=== PATIENT | female | born 1955 | race Caucasian/White ===

== ENCOUNTER 2018-09-16 10:40 | Day surgery (SDC) | payer OTHER ==
--- NOTE | 2018-09-16 11:03 | PCM.PREANE ---
Preanesthetic Assessment - Procedure Proposed Procedure: ORIF Right distal radius - Anesthesia/Transfusion/Family Hx Anesthesia History: Prior Anesthesia Without Reaction (foot, hysterectomy, ovary , T+A, esophageal wrap,(Geovany FUNDOPLICATION) bunions. Claims some awareness during buion surgery (usually done under MAC)) Other Type of Anesthesia Reaction Comment: awareness duting bunion surgery, hx of post-op headaches Family History of Anesthesia Reaction: No Transfusion History: No Prior Transfusion(s) - Review of Systems General: No Symptoms (kidney stones, fibromyalgia) Pulmonary: No Symptoms Cardiovascular: No Symptoms Gastrointestinal: Other (GERD, mild to non existent since her "esophageal wrap"( Geovany Fundoplication)) Neurological: Headache (migraines and low back pain), Other (has "passing out spells" but none in 10 years. Says they are related with low blood sugars and "stress". I listened to heart and heard a possible very very faint aortic systolic emection murmur but no clicks or irregularities in the heart rhythm) Other: Reports: None - Physical Assessment NPO Status Date: 09/16/18 NPO Status Time: 00:00 Pulse: 77 O2 Sat by Pulse Oximetry: 99 Respiratory Rate: 18 Blood Pressure: 127/76 Temperature: 37.3 C Height: 1.63 m Weight: 58.967 kg ASA Class: 2 Mental Status: Alert & Oriented x3 Airway Class: Mallampati = 2 Dentition: Reports: Normal Dentition (UPPER RIGHT CAP) Thyro-Mental Finger Breadths: 2 Mouth Opening Finger Breadths: 3 ROM/Head Extension: Full Lungs: Clear to Auscultation, Normal Respiratory Effort Cardiovascular: Regular Rate, Regular Rhythm, No Murmurs (possibly very faint aortic SHIELA. No clicks. Never had cardiac workup.) - Allergies Allergies/Adverse Reactions: Allergies Allergy/AdvReac Type Severity Reaction Status Date / Time No Known Allergies Allergy Verified 09/15/18 16:04 - Blood Blood Available: No Product(s) Available: None - Acknowledgements Anesthesia Type Planned: General Anesthesia (GA with either LMA or ETT (minimal lGERD)) Pt an Appropriate Candidate for the Planned Anesthesia: Yes Alternatives and Risks of Anesthesia Discussed w Pt/Guardian: Yes Pt/Guardian Understands and Agrees with Anesthesia Plan: Yes PreAnesthesia Questionnaire HEENT History: Reports: None Cardiovascular History: Reports: None Respiratory History: Reports: None Gastrointestinal History: Reports: None Genitourinary History: Reports: None 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: Musculoskeletal History: Reports: Fracture, Fibromyalgia Other Musculoskeletal History: hx of fx bone in left hip and finger Neurological History: Reports: Migraines Psychiatric History: Reports: None Endocrine/Metabolic History: Reports: None Hematologic History: Reports: None Immunologic History: Reports: None Oncologic (Cancer) History: Reports: None Dermatologic History: Reports: None - Past Surgical History Head Surgeries/Procedures: Reports: None HEENT Surgical History: Reports: Tonsillectomy GI Surgical History: Reports: Other (See Below) Other GI Surgeries/Procedures: had an "esophageal wrap" Female Surgical History: Reports: Hysterectomy, Salpingo-Oophorectomy Musculoskeletal Surgical History: Reports: Other (See Below) Other Musculoskeletal Surgeries/Procedures:: hx of bilateral bunionectomies- screws removed - SUBSTANCE USE Smoking Status *Q: Never Smoker Recreational Drug Use History: No - HOME MEDS Home Medications: Home Meds SUMAtriptan 100 mg PO ASDIRECTED PRN 06/26/15 [History] Hydrocodone/Acetaminophen [Hydrocodon-Acetaminophen 5-325] 1 - 2 tab PO ASDIRECTED PRN 09/15/18 [History]
[2018-09-16] MEDS ORDERED: fentaNYL 100 MCG/2 ML SDV ONE ×3 (12:03→14:19)
[2018-09-16] MEDS ORDERED: Lactated Ringers 1,000 ML IV SCH (12:15)
[2018-09-16] MEDS ORDERED: Bupivacaine 0.5% 10 ML SDV ONE (12:33)
[2018-09-16] MEDS ORDERED: Midazolam 1 MG/ML 2 ML SDV ONE (13:09)
[2018-09-16] MEDS ORDERED: Propofol 200 MG/20 ML SDV ONE (13:13)
[2018-09-16] MEDS ORDERED: fentaNYL 100 MCG/2 ML SDV IVPUSH PRN (13:45)
[2018-09-16] MEDS ORDERED: Ketorolac 30 MG/ML SDV ONE (14:06)
[2018-09-16] MEDS ORDERED: Ondansetron 4 MG/2 ML SDV ONE (14:06)
--- NOTE | 2018-09-16 14:28 | PCM.OPNOTE ---
- General Post-Op/Procedure Note Date of Surgery/Procedure: 09/16/18 Operative Procedure(s): ORIF right distal radius fracture Post-Op Diagnosis: R distal radius fracture Anesthesia Technique: General LMA Primary Surgeon: Jovanna Ortiz Swage Tender: Mariaa Philip in mLs: 10 Condition: Good Free Text/Narrative:: tt=28 min #[id number]
--- NOTE | 2018-09-16 14:49 | PCM.POSTAN ---
POST ANESTHESIA ASSESSMENT - MENTAL STATUS Mental Status: Alert, Oriented - RESPIRATORY Respiratory Status: Respiratory Rate WNL, Airway Patent, O2 Saturation Stable - CARDIOVASCULAR CV Status: Pulse Rate WNL, Blood Pressure Stable - GASTROINTESTINAL GI Status: No Symptoms - POST OP HYDRATION Hydration Status: Adequate & Stable
[2018-09-16] MEDS ORDERED: Morphine 4 MG/ML Syringe ONE (15:22)
[2018-09-16] MEDS ORDERED: Acetaminophen/HYDROcodone 325-5 MG Tab ONE (15:24)
[2018-09-16 15:55] VITALS: BP 127/76
--- NOTE | 2018-09-16 15:55 | PCM48HPAN ---
Post Anesthesia Note - EVALUATION WITHIN 48HRS OF ANESTHETIC Vital Signs in Normal Range: Yes Patient Participated in Evaluation: Yes Respiratory Function Stable: Yes Airway Patent: Yes Cardiovascular Function Stable: Yes Hydration Status Stable: Yes Pain Control Satisfactory: Yes Nausea and Vomiting Control Satisfactory: Yes Mental Status Recovered: Yes Pulse Rate: 77 Resp Rate: 16 Temperature: 37.3 C Blood Pressure: 127/76 - COMMENTS/OBSERVATIONS Free Text/Narrative:: The patient appears comfortable and in no acute distress. Discharge home per criteria.
--- NOTE | 2018-09-16 16:42 | OR ---
SURGEON: Jovanna Ortiz MD DATE OF PROCEDURE: 09/16/2018 PREOPERATIVE DIAGNOSIS: Right distal radius fracture, extra-articular. POSTOPERATIVE DIAGNOSIS: Right distal radius fracture, extra-articular. PROCEDURE: Open reduction and internal fixation of right distal radius. RN TRANSPORT: BHAVESH Pedersen ANESTHESIA: General. ESTIMATED BLOOD LOSS: 10 mL. TOURNIQUET TIME: 28 minutes. COMPLICATIONS: None. DVT PROPHYLAXIS: PAS boots to bilateral lower extremities. IMPLANTS USED: Laura intermediate short plate with combination of 2.3 mm locking and 2.7 mm locking screws. BRIEF HISTORY: Addis is a 63-year-old female who sustained a work related incident. She sustained a fracture to her right wrist. She is left-hand dominant. Attempted closed reduction was performed in the clinic yesterday, this was unsuccessful. Due to her lack of response to conservative treatment, I did recommend surgical intervention. The risks and goals of the procedure were discussed with the patient and were documented preoperatively. She agreed to proceed. DESCRIPTION OF PROCEDURE: The patient was properly identified and brought to the operating room. She was transferred from the OR cart and placed on the operating table in supine position. General anesthesia was administered. After adequate anesthesia was obtained, a well-padded tourniquet was applied to the right upper extremity. The right upper extremity was then prepped in standard fashion using ChloraPrep solution. It was then sterilely draped. A time-out was performed to ensure correct site and procedure. Preoperative antibiotics were given. The surgical site had been marked preoperatively. An Esmarch was used to exsanguinate the right lower extremity and the tourniquet was inflated to 200 mmHg. An incision was made over the volar aspect of the wrist. This was centered over the FCR tendon. The subcutaneous tissues were incised. Electrocautery was used to maintain hemostasis. FCR tendon was identified. Its sheath was incised and it was brought in a radial manner. The floor of the tendon sheath was then incised. The FPL was identified and brought in an ulnar manner. The pronator quadratus was then exposed. An incision was made through the pronator quadratus using electrocautery along the radial aspect of the muscle. The muscle was quite small and thin. A periosteal elevator was then used to elevate the remaining muscle from the volar aspect of the radius. The fracture site was then identified. It was copiously irrigated with saline solution to remove the fracture hematoma. A [place] elevator was placed within the fracture and it was brought into a reduced position. I elected to proceed with the intermediate short plate. Its position was checked along the bone using the C-arm image intensifier. It was felt that there was adequate reduction. K-wires were placed for provisional fixation. A 2.3 mm locking screw was then placed into the oblong hole proximally. The position of the plate was again checked in the AP and lateral plane. A 2.3 mm locking screw was then placed in the distal hole. Prior to final tightening, the K-wires were removed and the proximal screw was loosened. The distal screw was then tightened, followed by tightening of the proximal screw. This helped to improve the dorsal tilt to a neutral position. Her bone was not of ideal quality and was somewhat soft. The nonlocking screw did not appear to be giving much purchase. I elected to place a locking screw in one of the proximal holes as well. A 2.7 mm locking screw was placed, which provided better fixation. The nonlocking screw was subsequently removed and replaced with a locking screw. The remainder of the distal holes were filled with 2.3 mm locking screws. I was able to get good subchondral fixation of the distal fragment. Final C-arm images confirmed acceptable reduction of the fracture with good position of the hardware. The wound was then copiously irrigated with saline solution. I was unable to repair the pronator quadratus due to the poor condition of the muscle. The tourniquet was deflated. A small amount of bleeding was noted, which was controlled with the electrocautery. The subcutaneous tissues were closed with 3-0 Vicryl, and the skin was closed with a running 4-0 Monocryl suture. Steri-Strips and Benzoin were then placed. Xeroform gauze was placed over the wound and a bulky dressing was applied. She was placed in a volar wrist splint with the wrist in slight extension to help maintain hemostasis. This was allowed to harden. She was awakened from her anesthetic and transferred back to the operating room cart. She was brought to recovery room in stable condition. All needle and sponge counts were correct. FRED / YURIY /[id number]
--- NOTE | 2018-09-17 15:34 | CR ---
EXAMINATION: Right wrist HISTORY: ORIF COMPARISON: 09/15/2018 TECHNIQUE: 3 views FINDINGS/IMPRESSION: There is screw and plate hardware fixating a distal radius fracture. Minimally displaced ulnar styloid fracture again noted.
== END 2018-09-16 15:55 | disposition home or self-care (01) ==
LOC: MW.SDS 10:40
PROVIDERS: ATTEND Orthopaedic Surgery
DX: S52.551A Other extraarticular fracture of lower end of right radius, initial encounter for closed fracture (principal); W01.0XXA Fall on same level from slipping, tripping and stumbling without subsequent striking against object, initial encounter; Y92.481 Parking lot as the place of occurrence of the external cause
CPT/HCPCS: 25607; A9270; C1713; J0690; J1885; J2250; J2270; J2405; J2704; J3010; J3490; J7120

== ENCOUNTER 2021-07-24 10:48 | Emergency (ER) | payer MEDICARE, BC ==
--- NOTE | 2021-07-24 14:14 | EDM.PDOC ---
ED HPI GENERAL MEDICAL PROBLEM - General Chief Complaint: Upper Extremity Injury/Pain Stated Complaint: PAIN WRISTS/LEGS FROM FALL Time Seen by Provider: 07/24/21 14:05 Source of Information: Reports: Patient History Limitations: Reports: No Limitations - History of Present Illness INITIAL COMMENTS - FREE TEXT/NARRATIVE: Patient is a 66-year-old female who presents today for a fall from standing she has left wrist and knee pain. Patient denies hitting her head or have any LOC. Patient has the wrist pain is made worse with palpation with trying to move. She has no pain in the elbow or shoulder. 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: Musculoskeletal History: Reports: Fracture, Fibromyalgia Other Musculoskeletal History: hx of fx bone in left hip and finger Neurological History: Reports: Migraines Psychiatric History: Reports: None Endocrine/Metabolic History: Reports: None Hematologic History: Reports: None Immunologic History: Reports: None Oncologic (Cancer) History: Reports: None Dermatologic History: Reports: None - Past Surgical History Head Surgeries/Procedures: Reports: None HEENT Surgical History: Reports: Tonsillectomy GI Surgical History: Reports: Other (See Below) Other GI Surgeries/Procedures: had an "esophageal wrap" Female Surgical History: Reports: Hysterectomy, Salpingo-Oophorectomy Musculoskeletal Surgical History: Reports: Other (See Below) Other Musculoskeletal Surgeries/Procedures:: hx of bilateral bunionectomies- screws removed Social & Family History - Tobacco Use Tobacco Use Status *Q: Never Tobacco User - Recreational Drug Use Recreational Drug Use: No Review of Systems - Review of Systems Review Of Systems: See Below Constitutional: Reports: No Symptoms Eyes: Reports: No Symptoms Ears: Reports: No Symptoms Nose: Reports: No Symptoms Mouth/Throat: Reports: No Symptoms Respiratory: Reports: No Symptoms Cardiovascular: Reports: No Symptoms GI/Abdominal: Reports: No Symptoms Genitourinary: Reports: No Symptoms Musculoskeletal: Reports: Arm Pain Skin: Reports: No Symptoms Neurological: Reports: No Symptoms Psychiatric: Reports: No Symptoms ED EXAM, GENERAL - Physical Exam Exam: See Below Exam Limited By: No Limitations General Appearance: Alert, WD/WN, No Apparent Distress Nose: Normal Inspection Head: Atraumatic Neck: Normal Inspection, Supple, Non-Tender Respiratory/Chest: No Respiratory Distress Peripheral Pulses: 2+: Radial (L), Radial (R) Extremities: Normal Inspection, Normal Range of Motion. No: Non-Tender (Left wrist) Neurological: Alert, Oriented, Normal Cognition, Normal Gait, No Motor/Sensory Deficits ED TRAUMA EXTREMITY PROCEDURES - Splinting Left Upper Extremity Splint Site: elbow Pre-Procedure NV Status: Normal Post-Procedure NV Status: Normal Splint Material: Fiberglass Splint Design: Posterior Applied & Form Fitted By: Nurse Provider Post-Splint Application NV Check: NV Status Normal Complications: No Course - Vital Signs Last Recorded V/S: Last Vital Signs Temp 97.1 F 07/24/21 13:14 Pulse 79 07/24/21 14:52 Resp 16 07/24/21 13:14 BP 118/72 07/24/21 14:52 Pulse Ox 96 07/24/21 14:52 - Orders/Labs/Meds Orders: Active Orders 24 hr Category Date Time Status DME for Discharge [COMM] Stat Oth 07/24/21 16:36 Ordered Meds: Medications Discontinued Medications Generic Name Dose Route Start Last Admin Trade Name Freq PRN Reason Stop Dose Admin Ibuprofen 800 mg 07/24/21 16:36 07/24/21 16:46 Ibuprofen 800 Mg Tab PO 07/24/21 16:37 800 mg ONETIME ONE Administration - Re-Assessments/Exams Free Text/Narrative Re-Assessment/Exam: 07/25/21 07:30 Patient splint was placed good neurovascularly intact. Patient will be discharged to follow-up with Ortho as outpatient. Departure - Departure Time of Disposition: 16:40 Disposition: Home, Self-Care 01 Condition: Good Clinical Impression: Elbow fracture, left - Discharge Information *PRESCRIPTION DRUG MONITORING PROGRAM REVIEWED*: Not Applicable *COPY OF PRESCRIPTION DRUG MONITORING REPORT IN PATIENT ARABELLA: Not Applicable Prescriptions: traMADol [Ultram] 50 mg PO Q6H PRN 5 Days #20 tab PRN Reason: Pain (Severe 7-10) Instructions: Olecranon Fracture Referrals: PCP,None [Primary Care Provider] - Forms: ED Department Discharge Additional Instructions: You were seen today after a fall from standing you have a fracture of your elbow we would like you to see our orthopedic surgeon this below is the nu mber in the location that you can follow-up with they should be open on please call with no you are seen in the ER. If you have any other concerning signs or symptoms please return to the ED. The following information is given to patients seen in the emergency department who are being discharged to home. This information is to outline your options for follow-up care. We provide all patients seen in our emergency department with a follow-up referral. The need for follow-up, as well as the timing and circumstances, are variable depending upon the specifics of your emergency department visit. If you don't have a primary care physician on staff, we will provide you with a referral. We always advise you to contact your personal physician following an emergency department visit to inform them of the circumstance of the visit and for follow-up with them and/or the need for any referrals to a consulting specialist. The emergency department will also refer you to a specialist when appropriate. This referral assures that you have the opportunity for follow-up care with a specialist. All of these measure are taken in an effort to provide you with optimal care, which includes your follow-up. Under all circumstances we always encourage you to contact your private physician who remains a resource for coordinating your care. When calling for follow-up care, please make the office aware that this follow-up is from your recent emergency room visit. If for any reason you are refused follow-up, please contact the [facility] Emergency Department at and asked to speak to the emergency department charge nurse. Please follow up with your primary care physician. If you do not have a primary care physician, see below: [facility] Professional Building [address] [place] [address], [address] [place] [address] Sepsis Event Note (ED) - Evaluation Sepsis Screening Result: No Definite Risk - My Orders Last 24 Hours: My Active Orders 07/24/21 16:36 DME for Discharge [COMM] Stat - Assessment/Plan Last 24 Hours: My Active Orders 07/24/21 16:36 DME for Discharge [COMM] Stat Plan: Patient is a 66-year-old female presents for fall from standing she has left wrist and left knee pain. Patient able to ambulate without assistance. She has some tenderness of the left wrist will get x-ray provide pain control.
[2021-07-24 14:53] VITALS: BP 118/72; PULSE 79
--- NOTE | 2021-07-24 15:59 | CR ---
Indication: Fall Technique: Two views left forearm Comparison: None Findings: Bones: Acute intra-articular, minimally displaced fracture of the distal radius. Minimally displaced fracture of the ulnar styloid tip. Joint spaces: Unremarkable. Soft tissues: Unremarkable. Impression: Acute intra-articular, minimally displaced fracture of the distal radius. Minimally displaced fracture of the ulnar styloid tip. Dictated by Cindy Berry MD @ 07/24/2021 3:58:48 PM (Electronically Signed)
--- NOTE | 2021-07-24 16:01 | CR ---
Indication: Fall Technique: Two views left humerus Comparison: None Findings: Bones: Alignment is normal. No fractures or bone lesions. Joint spaces: Unremarkable. Soft tissues: Unremarkable. Impression: Negative. Dictated by Cindy Berry MD @ 07/24/2021 4:00:32 PM (Electronically Signed)
[2021-07-24] MEDS ORDERED: Ibuprofen 800 MG Tab PO ONE (16:36)
--- NOTE | 2021-07-24 22:29 | CR ---
Indication: Fall Technique: Two views left forearm Comparison: None Findings: Bones: Acute intra-articular, minimally displaced fracture of the distal radius. Minimally displaced fracture of the ulnar styloid tip. Joint spaces: Unremarkable. Soft tissues: Unremarkable. Impression: Acute intra-articular, minimally displaced fracture of the distal radius. Minimally displaced fracture of the ulnar styloid tip. Dictated by Cindy Berry MD @ 07/24/2021 3:58:48 PM Signed by: Cindy Berry MD @07/24/2021 3:58:48 PM TASHIA/Dictated by: Cindy Berry MD @ 07/24/2021 3:58:00 PM (Electronically Signed)
== END 2021-07-24 17:13 | disposition home or self-care (01) ==
LOC: MW.ED 10:48
DX: S52.572A Other intraarticular fracture of lower end of left radius, initial encounter for closed fracture (principal); S52.612A Displaced fracture of left ulna styloid process, initial encounter for closed fracture; W18.30XA Fall on same level, unspecified, initial encounter
CPT/HCPCS: 29105; 73060; 73090; 73562; 99283; A9270

== ENCOUNTER 2021-07-27 11:08 | Day surgery (SDC) | payer MEDICARE, BC ==
--- NOTE | 2021-07-27 08:10 | PCM.PREANE ---
Preanesthetic Assessment - Anesthesia/Transfusion/Family Hx Anesthesia History: Prior Anesthesia Without Reaction (foot, hysterectomy, ovary, T+A, esophageal wrap,(Alicia FUNDOPLICATION) bunions. Claims some awareness during buion surgery (usually done under MAC)) Other Type of Anesthesia Reaction Comment: "woke up twice during my foot surgery" Transfusion History: No Prior Transfusion(s) - Review of Systems General: No Symptoms Pulmonary: No Symptoms Cardiovascular: No Symptoms Gastrointestinal: No Symptoms Neurological: No Symptoms Other: Reports: None - Physical Assessment NPO Status Date: 07/27/21 NPO Status Time: 00:00 Height: 5 ft 4 in Weight: 120 lb ASA Class: 1 Mental Status: Alert & Oriented x3 Airway Class: Mallampati = 1 Dentition: Reports: Normal Dentition Thyro-Mental Finger Breadths: 3 Mouth Opening Finger Breadths: 3 ROM/Head Extension: Full Lungs: Clear to Auscultation, Normal Respiratory Effort Cardiovascular: Regular Rate, Regular Rhythm - Allergies Allergies/Adverse Reactions: Allergies Allergy/AdvReac Type Severity Reaction Status Date / Time No Known Allergies Allergy Verified 07/26/21 11:33 - Acknowledgements Anesthesia Type Planned: General Anesthesia, Regional Block Pt an Appropriate Candidate for the Planned Anesthesia: Yes Alternatives and Risks of Anesthesia Discussed w Pt/Guardian: Yes Pt/Guardian Understands and Agrees with Anesthesia Plan: Yes PreAnesthesia Questionnaire HEENT History: Reports: None Cardiovascular History: Reports: None Respiratory History: Reports: None Gastrointestinal History: Reports: None Genitourinary History: Reports: Renal Calculus 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: Musculoskeletal History: Reports: Fracture, Fibromyalgia Other Musculoskeletal History: hx of fx bone in left hip, fx finger & fx right wrist Neurological History: Reports: Migraines Psychiatric History: Reports: None Endocrine/Metabolic History: Reports: None Hematologic History: Reports: None Immunologic History: Reports: None Oncologic (Cancer) History: Reports: None Dermatologic History: Reports: None - Past Surgical History Head Surgeries/Procedures: Reports: None HEENT Surgical History: Reports: Tonsillectomy Cardiovascular Surgical History: Reports: None Respiratory Surgical History: Reports: None GI Surgical History: Reports: Other (See Below) Other GI Surgeries/Procedures: had an "esophageal wrap" Female Surgical History: Reports: Hysterectomy, Kidney stone extraction, Salpingo-Oophorectomy Endocrine Surgical History: Reports: None Neurological Surgical History: Reports: None Musculoskeletal Surgical History: Reports: ORIF, Other (See Below) Other Musculoskeletal Surgeries/Procedures:: hx of bilateral bunionectomies- screws removed, ORIF fx right wrist with hardware Oncologic Surgical History: Reports: None Dermatological Surgical History: Reports: None - SUBSTANCE USE Tobacco Use Status *Q: Never Tobacco User - HOME MEDS Home Medications: Home Meds SUMAtriptan 100 mg PO ASDIRECTED PRN 06/26/15 [History] traMADol [Ultram] 50 mg PO Q6H PRN 5 Days #20 tab 07/24/21 [Rx] - CURRENT (IN HOUSE) MEDS Current Meds: Current Medications Albuterol (Albuterol 0.083% 2.5 Mg/3 Ml Neb Soln) 2.5 mg NEB ONETIME PRN PRN Reason: Wheezing Droperidol (Droperidol 5 Mg/2 Ml Sdv) 0.625 mg IVPUSH ONETIME PRN PRN Reason: Nausea/Vomiting Fentanyl (Fentanyl 100 Mcg/2 Ml Sdv) 50 mcg IVPUSH Q5M PRN PRN Reason: Pain (mild 1-3) Hydromorphone HCl (Hydromorphone 1 Mg/Ml Syringe) 1 mg IVPUSH Q10M PRN PRN Reason: Pain (moderate 4-6) Lactated Ringer's (Ringers, Lactated) 1,000 mls @ 100 mls/hr IV ASDIRECTED TORREY Cefazolin Sodium/Dextrose 2 gm (/ Premix) 50 mls @ 100 mls/hr IV ONCALL TORREY Metoclopramide HCl (Metoclopramide 10 Mg/2 Ml Sdv) 10 mg IVPUSH ONETIME PRN PRN Reason: Nausea/Vomiting Morphine Sulfate (Morphine 4 Mg/Ml Vial) 2 mg IVPUSH Q10M PRN PRN Reason: Pain (severe 7-10) Naloxone HCl (Naloxone 0.4 Mg/Ml Sdv) 0.1 mg IVPUSH ASDIRECTED PRN PRN Reason: Respiratory Depression Ondansetron HCl (Ondansetron 4 Mg/2 Ml Sdv) 4 mg IVPUSH ONETIME PRN PRN Reason: Nausea/Vomiting
[~2021-07-27 11:08] MED LIST: Albuterol 0.083% 2.5 MG/3 ML Neb Soln NEB PRN; Bupivacaine 0.5% 30 ML SDV ONE; HYDROmorphone 1 MG/ML Syringe IVPUSH PRN; Lactated Ringers 1,000 ML IV SCH; Lidocaine 2% 5 ML SDV ONE; Metoclopramide 10 MG/2 ML SDV IVPUSH PRN; Morphine 4 MG/ML VIAL IVPUSH PRN; Naloxone 0.4 MG/ML SDV IVPUSH PRN; Ondansetron 4 MG/2 ML SDV IVPUSH PRN; fentaNYL 100 MCG/2 ML SDV IVPUSH PRN
[2021-07-27] MEDS ORDERED: fentaNYL 100 MCG/2 ML SDV ONE ×2 (11:14→11:16)
[2021-07-27] MEDS ORDERED: Sodium Chloride 0.9% 20 ML ONE (11:16)
[2021-07-27] MEDS ORDERED: Lidocaine 2% 100 MG/5 ML Syringe ONE (11:16)
[2021-07-27] MEDS ORDERED: Dexmedetomidine 200 MCG/2 ML SDV ONE ×2 (11:16→12:55)
[2021-07-27] MEDS ORDERED: Propofol 200 MG/20 ML SDV ONE (11:16)
--- NOTE | 2021-07-27 11:58 | PCM.SN.2 ---
- Free Text/Narrative Note: Anesthesia Start:1140 Anesthesia Stop: 1150 Following a block time out, US was used to place a right axillary block with a 4 inch 21g stimuplex needle. 30 cc 0.5% bupiv injected in 5cc increments. No complications. Chris Yang MD
[2021-07-27] MEDS ORDERED: ceFAZolin 2 GM in Premix Bag 1 BAG IV SCH (12:00)
[2021-07-27] MEDS ORDERED: ePHEDrine 50 MG/ML SDV ONE (12:51)
[2021-07-27] MEDS ORDERED: Dexamethasone 4 MG/ML 5 ML MDV ONE (13:04)
--- NOTE | 2021-07-27 14:06 | PCM.OPNOTE ---
- General Post-Op/Procedure Note Date of Surgery/Procedure: 07/27/21 Operative Procedure(s): Open reduction and internal fixation of left distal radius fracture Findings: Left displaced, impacted, extra-articular distal radius fracture Pre Op Diagnosis: Left displaced, impacted, extra-articular distal radius fracture Post-Op Diagnosis: Left displaced, impacted, extra-articular distal radius fracture Anesthesia Technique: General LMA, Regional Block Primary Surgeon: Dariel Younger Skills Auditor: Mariaa Philip Reason Skills Auditor Was Necessary: Retraction and patient positioning. Pathology: None EBL in mLs: 5 Complications: None Free Text/Narrative:: Patient injured her left wrist and sustained a left extra-articular distal radius fracture that was displaced and impacted. Patient had previously had a right distal radius fracture treated with open reduction and internal fixation and has had an excellent outcome. We discussed the risks and benefits of nonoperative's well with operative treatments and the patient wished to proceed with surgery. All questions were answered. Patient was medically cleared for surgery. Patient was taken to the operating after previously receiving an axillary block for regional anesthesia. After adequate general anesthesia she remained in a supine position. The upper extremity and hand were positioned on a hand table. The tourniquet was applied. The left hand and upper extremity were prepped and draped in usual sterile manner. A longitudinal incision was made centered over the flexor carpi radialis tendon. The skin was incised with a scalpel. Subcutaneous tissue was incised electrocautery. The palmaris tendon was identified and retracted. The flexor carpi radialis sheath was opened on the tendon retracted to protect the median nerve and exposing the pronator quadratus. The pronator quadratus was taken down along the radial styloid border exposing the fracture. There was comminution volarly and this was manually reduced. A narrow intermediate volar locking plate from [employer] was then applied and noted to have a good fit. Provisional screw was inserted through the sliding slot and noted to be in good position on C arm. Additional screws were then placed on the radial shaft and 2 locking screws were placed. C arm noted good reduction and one of the locking screws needed to be adjusted. Additional locking screws were then inserted filling the plate with 5 locking screws. C-arm noted excellent reduction and no intra-articular step-off's in the articular surface. Wounds were irrigated. Pronator quadratus was repaired with Vicryl absorbable suture. Fascia was closed with Vicryl observable suture. Subcutaneous tissue was closed with 2-0 Vicryl suture and a running Monocryl was used for final closure because there was no significant swelling. Sterile dressing was applied and patient was placed in a short arm volar splint. Patient was accompanied the covering sterile condition. Pain medication: Ibuprofen, Tylenol, Vicodin Prophylactic antibiotics: Not indicated for outpatient surgery Venous thromboembolism prophylaxis: Not indicated for patient with upper extremity fracture that is mobile Restrictions: Patient is nonweightbearing on her left upper extremity for 3 months. She should keep the splint clean and dry and will follow up in 2 weeks for postoperative check.
--- NOTE | 2021-07-27 14:37 | PCM.POSTAN ---
POST ANESTHESIA ASSESSMENT - MENTAL STATUS Mental Status: Alert, Oriented - VITAL SIGNS Vital Signs: Last Vital Signs Temp 36.4 C 07/27/21 11:37 Pulse 74 07/27/21 11:37 Resp 14 07/27/21 11:37 BP 131/68 07/27/21 11:37 Pulse Ox 98 07/27/21 11:37 - RESPIRATORY Respiratory Status: Respiratory Rate WNL, Airway Patent, O2 Saturation Stable - CARDIOVASCULAR CV Status: Pulse Rate WNL, Blood Pressure Stable - GASTROINTESTINAL GI Status: No Symptoms - POST OP HYDRATION Hydration Status: Adequate & Stable
--- NOTE | 2021-07-27 14:41 | PCM48HPAN ---
Post Anesthesia Note - EVALUATION WITHIN 48HRS OF ANESTHETIC Vital Signs in Normal Range: Yes Patient Participated in Evaluation: Yes Respiratory Function Stable: Yes Airway Patent: Yes Cardiovascular Function Stable: Yes Hydration Status Stable: Yes Pain Control Satisfactory: Yes Nausea and Vomiting Control Satisfactory: Yes Mental Status Recovered: Yes Vital Signs: Last Vital Signs Temp 37.3 C 07/27/21 14:21 Pulse 80 07/27/21 14:36 Resp 14 07/27/21 14:36 BP 120/70 07/27/21 14:36 Pulse Ox 95 07/27/21 14:36
[2021-07-27 15:53] VITALS: BP 118/59; PULSE 79
--- NOTE | 2021-07-28 07:57 | CR ---
Indication: ORIF left wrist. Technique: Two intraoperative views the left wrist. Comparison: July 26, 2021. Findings: A plate and screws are identified transfixing the distal radial fracture. Impression: Intraoperative images obtained Dictated by Radha Brooks MD @ 07/28/2021 7:56:02 AM (Electronically Signed)
== END 2021-07-27 15:51 | disposition home or self-care (01) ==
LOC: MW.SDS 11:08
PROVIDERS: ATTEND Orthopaedic Surgery
DX: S52.552A Other extraarticular fracture of lower end of left radius, initial encounter for closed fracture (principal); S52.613A Displaced fracture of unspecified ulna styloid process, initial encounter for closed fracture; Z79.899 Other long term (current) drug therapy; Z98.890 Other specified postprocedural states
CPT/HCPCS: 25607; 76000; J1100; J2704; J3010; J3490; J7120; 01830; C1713

== ENCOUNTER 2022-09-24 06:27 | Day surgery (SDC) | payer MEDICARE, BC ==
[~2022-09-24 06:27] MED LIST changes: -Albuterol 0.083% 2.5 MG/3 ML Neb Soln NEB PRN; -Bupivacaine 0.5% 30 ML SDV ONE; -HYDROmorphone 1 MG/ML Syringe IVPUSH PRN; -Lidocaine 2% 5 ML SDV ONE; -Metoclopramide 10 MG/2 ML SDV IVPUSH PRN; -Morphine 4 MG/ML VIAL IVPUSH PRN; -Naloxone 0.4 MG/ML SDV IVPUSH PRN; -Ondansetron 4 MG/2 ML SDV IVPUSH PRN; +Sodium Chloride 0.9% 10 ML Syringe FLUSH PRN; +Sodium Chloride 0.9% 2.5 ML Syringe FLUSH PRN; +Sodium Chloride 0.9% 20 ML SDV IV PRN; -fentaNYL 100 MCG/2 ML SDV IVPUSH PRN
[2022-09-24] MEDS ORDERED: Lidocaine 2% 5 ML SDV ONE (06:54)
[2022-09-24] MEDS ORDERED: Propofol 200 MG/20 ML SDV ONE (06:55)
[2022-09-24 09:07] VITALS: BP 117/68; PULSE 70
== END 2022-09-24 09:20 | disposition home or self-care (01) ==
LOC: MW.SDS 06:27
PROVIDERS: ATTEND Surgery
DX: D12.2 Benign neoplasm of ascending colon (principal); K29.50 Unspecified chronic gastritis without bleeding; K21.00 Gastro-esophageal reflux disease with esophagitis, without bleeding; K57.30 Diverticulosis of large intestine without perforation or abscess without bleeding; K44.9 Diaphragmatic hernia without obstruction or gangrene; M81.0 Age-related osteoporosis without current pathological fracture; Z88.1 Allergy status to other antibiotic agents; Z79.899 Other long term (current) drug therapy; Z98.890 Other specified postprocedural states; M79.10 Myalgia, unspecified site; Z90.710 Acquired absence of both cervix and uterus
CPT/HCPCS: 43239; 45380; J2704; J7120; 00813; 45381; 88305; J3490